=== PATIENT | male | born 1950 | race Hispanic/Latino ===

== ENCOUNTER 2017-12-03 06:54 | Day surgery (SDC) | payer MEDICARE ==
[2017-12-01 12:04] VITALS: BP 134/80
[2017-12-01 12:13] LABS: APPEARANCE,URINE Clear (CLEAR); BILIRUBIN,URINE Negative (NEGATIVE); COLOR,URINE Yellow (YELLOW); GLUCOSE, URINE (UA) Negative (NEGATIVE); KETONES,URINE Negative (NEGATIVE); LEUKOCYTE ESTERASE ,URINE Moderate (NEGATIVE); NITRATE,URINE Negative (NEGATIVE); OCCULT BLOOD,URINE Negative (NEGATIVE); PH,URINE 7.5 (5.0-8.0); PROTEIN,URINE Negative (NEGATIVE)
[2017-12-01 12:14] LABS: BASOPHILS % (AUTO) 0.5 % (0.0-5.0); EOSINOPHILS % (AUTO) 1.5 % (0.0-8.0); MEAN CORPUSCULAR HEMOGLOBIN 30.3 pg (27.0-33.0); MEAN CORPUSCULAR HGB CONC 33.2 g/dL (32.0-36.0); MEAN CORPUSCULAR VOLUME 91.3 fL (79-99); MONOCYTES % (AUTO) 10.9 % (3.0-13.0); NEUTROPHILS % (AUTO) 58.1 % (40.0-77.0); NUCLEATED RED BLOOD CELLS 0.1 % (0.0-0.19); PLATELET COUNT (AUTO) 91 K/uL (130-400); RED BLOOD CELL COUNT(AUTO) 5.26 MIL/uL (4.50-6.20); RED CELL DISTRIBUTION WIDTH 14.2 % (11.0-15.5)
[2017-12-01 12:21] LABS: CREATININE 0.9 mg/dL (0.5-1.5); POTASSIUM 3.9 mmol/L (3.5-5.1)
[2017-12-01 12:28] LABS: BACTERIA,URINE Few /HPF (None Seen); RBC,URINE None Seen /HPF (0-1)
[2017-12-03] VITALS (19 sets, daily range): BP systolic 106–162; BP diastolic 62–105
[~2017-12-03] VITALS: Ht 172.7 cm; Wt 94.7 kg
[~2017-12-03 06:54] MED LIST: AMLO5TAB7 PO; OMEP20CA10 PO
[2017-12-03] MEDS ORDERED: LACTATED RINGERS 1000ML 1,000 ML IV ONE (07:07)
[2017-12-03 07:21] LABS: BASOPHILS % (AUTO) 0.6 % (0.0-5.0); EOSINOPHILS % (AUTO) 1.6 % (0.0-8.0); HEMATOCRIT 45.9 % (42-54); LYMPHOCYTES % (AUTO) 33.6 % (21.0-51.0); MEAN CORPUSCULAR HEMOGLOBIN 30.2 pg (27.0-33.0); MEAN CORPUSCULAR HGB CONC 32.9 g/dL (32.0-36.0); MEAN CORPUSCULAR VOLUME 91.8 fL (79-99); MONOCYTES % (AUTO) 10.3 % (3.0-13.0); NEUTROPHILS % (AUTO) 53.9 % (40.0-77.0); PLATELET COUNT (AUTO) 81 K/uL (130-400); WHITE BLOOD COUNT (AUTO) 5.7 K/uL (4.8-10.8)
[2017-12-03 07:42] LABS: INR 1.07 (0.85-1.15); PARTIAL THROMBOPLASTIN TIME 28.8 SEC (26.3-35.5); PROTHROMBIN TIME 11.2 SEC (9.6-11.6)
[2017-12-03] MEDS ORDERED: DEXAMETHASONE SOD PHOSPHATE 10MG/ML 1ML VIAL ONE (08:36)
[2017-12-03] MEDS ORDERED: ONDANSETRON HCL 4 MG/2 ML VIAL ONE (08:36)
[2017-12-03] MEDS ORDERED: LIDOCAINE PF 2% 5ML ABBOJECT ONE (08:36)
[2017-12-03] MEDS ORDERED: PROPOFOL 10 MG/ML 20ML VIAL IV ONE (08:36)
[2017-12-03] MEDS ORDERED: MIDAZOLAM HCL 1 MG/ML 2ML VIAL ONE (08:36)
[2017-12-03] MEDS ORDERED: FENTANYL CITRATE PF 50 MCG/1 ML 2ML VIAL ONE (08:37)
[2017-12-03] MEDS ORDERED: BUPIVACAINE/PF 0.25% 30ML VIAL IJ ONE (09:04)
[2017-12-03] MEDS ORDERED: ROCURONIUM 10MG/1ML SYR 10 MG/ML ML ONE (09:11)
[2017-12-03] MEDS ORDERED: GLYCOPYRROLATE 1 MG/5 ML SYRINGE ONE (09:35)
[2017-12-03] MEDS ORDERED: NEOSTIGMINE 5MG/5ML SYR IV ONE (09:35)
[2017-12-03] MEDS ORDERED: RACEPINEPHRINE HCL 2.25% 0.5 ML NEB SOLN ONE (09:47)
[2017-12-03] MEDS ORDERED: KETOROLAC TROMETHAMINE 30MG/ML ONE (10:27)
[2017-12-03] MEDS ORDERED: IPRATROPIUM/ALBUTEROL SULFATE 3 ML SOLUTION IH ONE (10:48)
== END 2017-12-03 11:51 | disposition home or self-care (01) ==
LOC: DAH 06:54
PROVIDERS: ATTEND Surgery
DX: K42.9 Umbilical hernia without obstruction or gangrene (principal); I10 Essential (primary) hypertension; E66.9 Obesity, unspecified
CPT/HCPCS: 36415 ×2; 49585; 80048; 81001; 85025 ×2; 85610; 85730; 93005; 94640; A4450; A4452; A4606; C1781; J1100; J1885; J2001; J2250; J2405; J2704; J2710; J3010; J3490 ×2; J7120

== ENCOUNTER → 2022-07-07 | Outpatient (CLI) | payer OTHER, MEDICARE ==
[~2022-07-07] MED LIST changes: +ACET-66 PO; +AMLO-257 PO; -AMLO5TAB7 PO; -OMEP20CA10 PO; +OMEP20CA12 PO
== END | disposition home or self-care (01) ==
LOC: RAH 08:52
PROVIDERS: ATTEND Internal Medicine Gastroenterology
DX: K74.60 Unspecified cirrhosis of liver (principal)
CPT/HCPCS: 76700; 93975

== ENCOUNTER 2023-01-03 22:28 | Emergency (ER) | payer MEDICARE, OTHER ==
[~2023-01-03] VITALS: Ht 170.2 cm; Wt 87.5 kg
[2023-01-03 23:00] LABS: SARS-CoV-2, RNA, NAAT NEGATIVE SARS CoV-2 (NEGATIVE)
[2023-01-03 23:02] LABS: RAPID GROUP A STREP positive (NEGATIVE)
[2023-01-03 23:05] LABS: INFLUENZA TYPE A Negative For Type A (NEGATIVE); INFLUENZA TYPE B Negative For Type B (NEGATIVE)
[2023-01-03 23:17] VITALS: BP 165/60; PULSE 97; RESP 22; O2SAT 96
[2023-01-03] MEDS ORDERED: ALBUHFA IH (23:26)
[2023-01-03] MEDS ORDERED: AMOX1TAB16 PO (23:26)
[2023-01-03] MEDS ORDERED: BENZ-39 PO (23:26)
[2023-01-03] MEDS ORDERED: AMOX/CLAV 875/125MG TAB PO ONE (23:30)
== END 2023-01-03 23:36 | disposition home or self-care (01) ==
LOC: EDH 22:28
DX: J02.0 Streptococcal pharyngitis (principal); R05.9 Cough, unspecified; B97.89 Other viral agents as the cause of diseases classified elsewhere; I10 Essential (primary) hypertension; Z79.899 Other long term (current) drug therapy; Z20.822 Contact with and (suspected) exposure to COVID-19
CPT/HCPCS: 99284; 71045; 87635; 87880; 87420; 87804 ×2; C9803

== ENCOUNTER → 2024-06-09 | Outpatient (CLI) | payer OTHER ==
[~2024-06-09] MED LIST changes: +ALBUHFA IH; +AMOX1TAB16 PO; +BENZ-39 PO
== END | disposition home or self-care (01) ==
LOC: SHCH 10:33
PROVIDERS: ATTEND Internal Medicine
DX: I08.3 Combined rheumatic disorders of mitral, aortic and tricuspid valves (principal); I50.22 Chronic systolic (congestive) heart failure
CPT/HCPCS: 93306

== ENCOUNTER 2024-12-28 02:21 | Observation (INO) | payer OTHER ==
[~2024-12-28] VITALS: Ht 170.2 cm; Wt 85.3 kg
[2024-12-28 02:48] LABS: IMMATURE GRANULOCYTE ABSOLUTE 0.01 K/uL (0-1); NUCLEATED RED BLOOD CELLS 0.0 % (0.0-0.19); PLATELET COUNT (AUTO) 176 K/uL (130-400); RED BLOOD CELL COUNT(AUTO) 4.66 MIL/uL (4.50-6.20); RED CELL DISTRIBUTION WIDTH 17.6 % (11.0-15.5); WHITE BLOOD COUNT (AUTO) 4.7 K/uL (4.8-10.8)
[2024-12-28 02:59] LABS: CREATININE 1.2 mg/dL (0.5-1.3); GLOMERULAR FILTR. RATE CALC 63.0 mL/min (>90); GLUCOSE,RANDOM 150.0 mg/dL (70-105); SODIUM SERUM 136.0 mmol/L (136-145); UREA NITROGEN, BLOOD 21.0 mg/dL (7-18)
--- NOTE | 2024-12-28 03:04 | ERN ---
General Chief Complaint: Dizzy/Light Headed Stated Complaint: C/O DIZZINESS, N X V; HX OF MENIERE'S DISEASE Time Seen by MD: 02:34 History of Present Illness Initial Comments 74-year-old male with a extensive past medical history here for evaluation of generalized dizziness and vomiting/nausea for the past day. Dizziness is described as room spinning. Patient states he has had similar symptoms before in the past for which they gave him an IM injection which relieved the symptoms however he does not know the name of the med injection. He is on amlodipine, furosemide, spironolactone. States he has a history of liver cirrhosis. 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 Mccain of Cardiology Heme Onc: Dr. Carrillo Allergies: Coded Allergies: No Known Drug Allergies (Unverified Allergy, Unknown, 12/01/17) Home Meds Active Scripts Albuterol Sulfate (Ventolin Hfa/Proventil Hfa/Proair Hfa) 90 Mcg Puff, 2 PUFF IH Q4H for WHEEZING, #1 INHALER 0 Refills Prov:[facility] 01/03/23 Benzonatate (Tessalon Perles) 100 Mg Cap, 100 MG PO TID for cough, #30 CAP 0 Refills Prov:[facility] 01/03/23 Amoxicillin/Potassium Clav (Amox Tr-K Clv 875-125 mg Tab) 875 Mg-125 Mg Tablet, 1 EACH PO BID for 10 Days, #10 TAB 0 Refills Prov:[facility] 01/03/23 Acetaminophen (Tylenol) 500 Mg Tab, 500 MG PO Q4PRN, #30 TAB Prov:L[facility]Y [employer] [employer] 07/06/21 Reported Medications Amlodipine Besylate (Amlodipine Besylate) 5 Mg Tablet, 5 MG PO DAILY, TAB 12/01/17 Omeprazole (Omeprazole) 20 Mg Capsule.dr, 20 MG PO DAILY, CAP 12/01/17 Past Medical History Past Medical History: Other Medical History Other: HX OF MENIERE'S DISEASE Past Surgical History: Other Surgical History Other: HERNIA REPAIR Neuro: (+) dizziness Physical Exam General Appearance: (+) no apparent distress Orientation: (+) alert, (+) oriented x 3 Eye: bilateral eye normal inspection, bilateral eye PERRL, bilateral eye EOMI Ear, Nose, Throat: (+) hearing grossly normal, (+) normal ENT inspection, (+) moist mucous membraine Neck: (+) normal inspection Respiratory: (+) chest non-tender, (+) well ventilated Heart: (+) regular; (-) murmur Gastrointestinal: (+) soft, (+) non-tender Back: (+) normal inspection, (+) no CVA tenderness Skin: (+) normal color Results Laboratory and Microbiology Lab and Micro Result Laboratory Tests Test 12/28/24 02:40 12/28/24 03:30 White Blood Count 4.7 K/uL (4.8-10.8) L Red Blood Count 4.66 MIL/uL (4.50-6.20) Hemoglobin 13.1 g/dL (14.0-18.0) L Hematocrit 41.1 % (42-54) L Mean Corpuscular Volume 88.2 fL (79-99) Mean Corpuscular Hemoglobin 28.1 pg (27.0-33.0) Mean Corpuscular Hemoglobin Concent 31.9 g/dL (32.0-36.0) L Red Cell Distribution Width 17.6 % (11.0-15.5) H Platelet Count 176 K/uL (130-400) Mean Platelet Volume 10.8 fL (7.5-10.5) H Immature Granulocyte % (Auto) 0.2 % (0-1) Neutrophils (%) (Auto) 70.2 % (40.0-77.0) Lymphocytes (%) (Auto) 18.6 % (21.0-51.0) L Monocytes (%) (Auto) 8.8 % (3.0-13.0) Eosinophils (%) (Auto) 1.3 % (0.0-8.0) Basophils (%) (Auto) 0.9 % (0.0-5.0) Neutrophils # (Auto) 3.3 K/uL (1.8-7.7) Lymphocytes # (Auto) 0.9 K/uL (1.0-4.8) L Monocytes # (Auto) 0.4 K/uL (0.1-1.0) Eosinophils # (Auto) 0.06 K/uL (0.00-0.70) Basophils # (Auto) 0.04 K/uL (0.00-0.20) Absolute Immature Granulocyte (auto 0.01 K/uL (0-1) Nucleated Red Blood Cells 0.0 % (0.0-0.19) Sodium Level 136 mmol/L (136-145) Potassium Level 4.2 mmol/L (3.5-5.1) Chloride Level 103 mmol/L (101-111) Carbon Dioxide Level 25 mmol/L (21-32) Blood Urea Nitrogen 21 mg/dL (7-18) H Creatinine 1.2 mg/dL (0.5-1.3) Glomerular Filtration Rate Calc 63 mL/min (>90) Random Glucose 150 mg/dL (70-105) H Total Calcium 8.1 mg/dL (8.5-10.1) L Troponin I High Sensitivity 5 ng/L (4-75) Ammonia 111 umol/L (11-32) *H EKG/XRAY/US/CT/MRI EKG: (+) NSR (Prolonged QT) MDM 74-year-old male here for evaluation of dizziness and room spinning sensation. Likely BPPV exacerbation. EKG shows prolonged QT interval at 510. Because of this I am hesitant to give Zofran and/or meclizine as they prolong QT interval. It is unknown if patient has a history of CHF. However he is on multiple medications that suggest fluid overload. Thus IV fluids we will be held at this time. We will get basic lab work to check glucose level and administer steroid to see if that improves patient's symptoms. Disposition pending results of labs and clinical improvement MDM: DIFFERENTIAL DIAGNOSIS: Nausea, vomiting, Meniere's disease exacerbation, BPPV, vertigo RATIONALE: TESTS CONSIDERED AND ORDERED SECONDARY TO SHARED DECISION MAKING INCLUDE: PREVIOUS OUTSIDE RECORDS REVIEWED: OLD ER VISITS. RISK OF COMPLICATION AND/OR MORBIDITY OR MORTALITY OF PATIENT MANAGEMENT: NONE MEDICATIONS-PER MEDICATION RECONCILIATION NEED FOR HOSPITALIZATION: PATIENT DOES NOT MEET CRITERIA FOR HOSPITALIZATION. NEED FOR EMERGENCY MAJOR/MINOR SURGERY: NO THERE ARE NO SOCIAL CONCERNS WITH THIS PATIENT. PRESCRIPTION DRUG MANAGEMENT PRESCRIPTIONS WILL INCLUDE SYMPTOMATIC CARE PATIENT'S PRIOR EXTERNAL MEDICAL RECORDS FROM OTHER ER VISITS WERE REVIEWED BY ME INDICATED. PRIOR TESTING AND RESULTS FROM PREVIOUS VISITS WERE REVIEWED. PRIOR TESTS WERE TAKEN INTO ACCOUNT WITH MEDICAL DECISION MAKING AND RESOURCE UTILIZATION, INDEPENDENT HISTORIAN/HISTORIANS WERE USED TO OBTAIN COMPLETE MEDICAL HISTORY. I INDEPENDENTLY INTERPRETED THE TEST THAT WERE PERFORMED, RESULTS WERE REVIEWED BY ME AND CONSIDERED FINDINGS ON RADIOLOGY IF ORDERED. MEDICAL MANAGEMENT AND EXAMINATION INTERPRETATION DISCUSSIONS WERE HAD BY ME WITH OTHER QUALIFIED HEALTHCARE PROFESSIONALS INDICATED FOR THE PATIENT'S CARE. ED Course Orders Procedure Category Date Status Time Cbc With Differential LAB 12/28/24 Complete 02:34 Basic Metabolic Panel LAB 12/28/24 Complete 02:34 Troponin I High LAB 12/28/24 Complete Sensitivity 02:34 Chest 1vw RAD 12/28/24 Resulted 02:34 Urinalysis Profile LAB 12/28/24 Logged 02:34 12 Lead Ekg Tracing- EKG 12/28/24 Logged Technical 02:47 Ammonia LAB 12/28/24 Complete 02:47 Promethazine Hcl PHA 12/28/24 Complete (Phenergan) 03:30 Methylprednisolone PHA 12/28/24 Complete Succ 125mg (Solu-Medr 03:30 B-Type Natriuretic LAB 12/28/24 Logged Peptide 03:48 0.9% Nacl 500ml PHA 12/28/24 Complete Iv.Soln (Ns 500ml 04:00 Lactulose 20 Gm/30 Ml PHA 12/28/24 Complete Udcup (Constulose 04:00 Current Medications Medications (Trade) Dose Ordered Sig/Monique Route PRN Reason Start Time Stop Time Status Last Admin Dose Admin Lactulose (Constulose 20gm/ 30ml Udcup) 20 gm ONCE ONCE PO 12/28/24 04:00 12/28/24 04:28 DC Methylprednisolone Sodium Succinate (Solu-medROL 125MG) 80 mg ONCE ONCE IVP 12/28/24 03:30 12/28/24 03:33 DC 12/28/24 04:06 Promethazine HCl (Phenergan) 25 mg ONCE ONCE IM 12/28/24 03:30 12/28/24 03:31 DC 12/28/24 03:33 Sodium Chloride 500 ml @ 0 mls/hr Q0M IV 12/28/24 04:00 12/28/24 03:59 DC Vital Signs Date Time Temp Pulse Resp B/P (MAP) Pulse Ox O2 Delivery O2 Flow Rate FiO2 12/28/24 02:47 98.1 80 20 124/62 98 Room Air* 0 21 12/28/24 02:27 97.2 90 20 125/58 100 Room Air Lactulose greater than 100. I had a discussion with the patient regarding his liver failure. States he has never been on lactulose in the past. Because of the SC my be suffering from hepatic encephalopathy in addition to BPPV. Still maintains mild dizziness at this time. He will likely benefit from lactulose administration, and evaluation by Cardiology on the floor to see if he can tolerate meclizine. DX & DISP Disposition: Inpatient Decision to Admit Date: Dec 28, 2024 Decision to Admit Time: 04:36 Departure Impression: Primary Impression: BPPV (benign paroxysmal positional vertigo) Additional Impressions: Meniere disease, Hepatic encephalopathy, Hyperammonemia, NAFLD (nonalcoholic fatty liver disease) Condition: Stable Referrals: NELL POTTER MD (PCP) CHARLENE ZAMARRIPA MD Dec 28, 2024 03:04
[2024-12-28] MEDS: PROMETHAZINE HCL 25 MG/ML 1ML AMPULE IM ONE (03:33)
[2024-12-28] MEDS ORDERED: 0.9% NACL 500ML IV.SOLN 500 ML IV SCH (04:00)
--- NOTE | 2024-12-28 04:28 | HMCIMG ---
EXAM: CR Chest, 1 view CLINICAL HISTORY: Shortness of breath. COMPARISON: None provided. FINDINGS: Borderline cardiomegaly and perihilar vascular congestion. No acute infiltrate, effusion, or pneumothorax. No acute osseous abnormality. IMPRESSION: Borderline cardiomegaly and perihilar vascular congestion. No acute infiltrate, effusion, or pneumothorax. /[place]
[2024-12-28] MEDS ORDERED: DEXTROSE 50%-WATER 50 ML DISP.SYRIN IV PRN (05:00)
[2024-12-28] MEDS ORDERED: MAGNESIUM 2GM PREMIX 50ML 50 ML IV SCH (05:00)
[2024-12-28] MEDS ORDERED: GLUCAGON 1MG KIT 1 MG ML IM PRN (05:00)
[2024-12-28] MEDS: LACTULOSE 20 GM/30 ML UDCUP PO ONE (05:13)
[2024-12-28 06:01] LABS: ASPARTATE AMINOTRANSFERASE 40.0 U/L (10-37); TOTAL PROTEIN, SERUM 7.2 g/dL (6.0-8.3)
[2024-12-28 06:04] LABS: INR 1.47 (0.85-1.15)
[2024-12-28] MEDS ORDERED: FURO20TA4 PO (06:05)
[2024-12-28] MEDS ORDERED: SPIR50TA5 PO (06:05)
[2024-12-28] MEDS ORDERED: SACU1TAB PO (06:05)
--- NOTE | 2024-12-28 06:31 | HMCIMG ---
EXAM: CT Head Without IV contrast. CLINICAL HISTORY: vertigo TECHNIQUE: Axial computed tomography images of the head/brain without intravenous contrast. COMPARISON: None provided. FINDINGS: BRAIN: No evidence of acute hemorrhage. No mass lesion. No CT evidence for acute territorial infarct. No midline shift or extra-axial collections. Age related neuroparenchymal atrophy with chronic microangiopathic ischemic changes in the bilateral periventricular white matter. VENTRICLES: No hydrocephalus. ORBITS: The orbits are unremarkable. SINUSES AND MASTOIDS: The paranasal sinuses and mastoid air cells are clear. BONES: No fracture. SOFT TISSUES: Unremarkable. IMPRESSION: No acute intracranial abnormality. Age related neuroparenchymal atrophy with chronic microangiopathic ischemic changes in the bilateral periventricular white matter. /[place]
[2024-12-28 06:45] LABS: APPEARANCE,URINE CLOUDY (CLEAR); GLUCOSE, URINE (UA) NEGATIVE (NEGATIVE); LEUKOCYTE ESTERASE ,URINE 500 Leu/uL (NEGATIVE); NITRATE,URINE NEGATIVE (NEGATIVE); OCCULT BLOOD,URINE NEGATIVE (NEGATIVE)
[2024-12-28 06:53] LABS: ADD UA MICROSCOPIC YES
[2024-12-28 07:10] LABS: SQUAMOUS EPITHELIAL CELL,UR Rare /HPF (0-2)
--- NOTE | 2024-12-28 08:16 | HP ---
[facility] HISTORY & PHYSICAL Date Patient Seen: Dec 28, 2024 Time of Visit: 08:15 Supervising Physician:Claude Baez MD Primary Care Physician: Cristin Walker MD Outpatient Specialists: [ ] Inpatient Consults: none PROBLEM LIST: Acute decompensated liver cirrhosis (MELD score 18 points 3-4% estimated 3 month mortality) Acute hepatin encephalopathy Hyperammonemia Acute complicated cystitis Vertigo Normocytic anemia Hyperglycemia Hyperbilirubinemia Mild hypoalbuminemia HPI: This a 74-year-old male with a history of nonalcoholic fatty liver cirrhosis, Meniere's disease, and hernia repair who presented for evaluation of nausea, vomiting and dizziness for the last day. In the ED UA shows leukocyte esterase of 500 white count of 11 to 25 urine bacteria of any cloudy appearance. H&H is stable 13.1/41.1 white count slightly low 4.7 neutrophils are normal. BUN 21 creatinine of 1.2 GFR of 63 glucose of 150 mg/dL total calcium of 8.1 albumin of 3.0. Total bili of 2.0 direct bili 0.6 AST 40 and alkaline phosphatase 166. Ammonia of 111. Brain MRI shows age- appropriate diffuse cerebral volume loss with chronic small-vessel ischemic changes in bilateral frontoparietal deep and periventricular white matter. No acute infarction or intracranial hemorrhage or mass lesion. Mild ventricular prominence consistent with age-related parenchymal volume loss no hydrocephalus. Normal signal and morphology obese 0 ganglia thalami and brainstem. And cerebellum. Clear paranasal sinuses and mastoid air cells. No significant interval changes compared to prior CT of the head. Chest x-ray shows borderline cardiomegaly and perihilar vascular congestion. No acute infiltrates effusion or pneumothorax. Patient is awake alert and oriented x3. He is slow to respond and reports feeling dizzy. Patient is hemodynamically stable denies any chest pain palpitations or shortness for breath. Some abdominal distention noted but is soft nontender. Plan: Patient to be admitted to [facility] Lactulose 60 g p.o. q.4 hours Recheck ammonia in a.m. MRI ruled out acute infarct Rocephin 2 g IV Q 24 hours for complicated cystitis. Resume home medications. PAST MEDICAL HX: see above PAST SURGICAL HX: noncontributory SOCIAL HISTORY: No tobacco, ETOH, or illicit drug use Coded Allergies: No Known Drug Allergies (Unverified Allergy, Unknown, 12/01/17) REVIEW OF SYSTEMS: 12 point ROS reviewed with patient. Pertinent positives mentioned above. Otherwise negative. PHYSICAL EXAM: GENERAL: alert, weak, awake oriented x 3 HEENT: EOMI, Sclera non icteric, moist mucosa NECK: Supple, no JVD, trachea midline LUNGS: Clear breath sounds bilaterally. No wheezes HEART: Regular rate and rhythm. Normal S1 and S2, without murmurs ABD: Abdomen soft, nontender. Bowel sounds present EXT: No clubbing cyanosis or edema NEURO: Alert and oriented to person, follows commands Vital Signs (last 8hr) Date Time Temp Pulse Resp B/P (MAP) Pulse Ox O2 Delivery O2 Flow Rate FiO2 12/28/24 07:20 97.5 91 18 136/73 91 Room Air* 0 21 12/28/24 06:11 95 18 122/71 98 Room Air* 0 21 12/28/24 02:47 98.1 80 20 124/62 98 Room Air* 0 21 12/28/24 02:27 97.2 90 20 125/58 100 Room Air LABS: Hematology Labs: Test 12/28/24 02:40 Range/Units White Blood Count 4.7 L 4.8-10.8 K/uL Red Blood Count 4.66 4.50-6.20 MIL/uL Hemoglobin 13.1 L 14.0-18.0 g/dL Hematocrit 41.1 L 42-54 % Mean Corpuscular Volume 88.2 79-99 fL Mean Corpuscular Hemoglobin 28.1 27.0-33.0 pg Mean Corpuscular Hemoglobin Concent 31.9 L 32.0-36.0 g/dL Red Cell Distribution Width 17.6 H 11.0-15.5 % Platelet Count 176 130-400 K/uL Mean Platelet Volume 10.8 H 7.5-10.5 fL Immature Granulocyte % (Auto) 0.2 0-1 % Neutrophils (%) (Auto) 70.2 40.0-77.0 % Lymphocytes (%) (Auto) 18.6 L 21.0-51.0 % Monocytes (%) (Auto) 8.8 3.0-13.0 % Eosinophils (%) (Auto) 1.3 0.0-8.0 % Basophils (%) (Auto) 0.9 0.0-5.0 % Neutrophils # (Auto) 3.3 1.8-7.7 K/uL Lymphocytes # (Auto) 0.9 L 1.0-4.8 K/uL Monocytes # (Auto) 0.4 0.1-1.0 K/uL Eosinophils # (Auto) 0.06 0.00-0.70 K/uL Basophils # (Auto) 0.04 0.00-0.20 K/uL Absolute Immature Granulocyte (auto 0.01 0-1 K/uL Nucleated Red Blood Cells 0.0 0.0-0.19 % Chemistry Labs: Test 12/28/24 08:12 12/28/24 03:30 12/28/24 02:40 Range/Units Whole Blood Glucose 167 H 70-110 MG/DL Ammonia 111 *H 11-32 umol/L Sodium Level 136 136-145 mmol/L Potassium Level 4.2 3.5-5.1 mmol/L Chloride Level 103 101-111 mmol/L Carbon Dioxide Level 25 21-32 mmol/L Blood Urea Nitrogen 21 H 7-18 mg/dL Creatinine 1.2 0.5-1.3 mg/dL Glomerular Filtration Rate Calc 63 >90 mL/min Random Glucose 150 H 70-105 mg/dL Total Calcium 8.1 L 8.5-10.1 mg/dL Magnesium Level 2.10 1.80-2.40 mg/dL Total Bilirubin 2.0 H 0.2-1.0 mg/dL Direct Bilirubin 0.6 H 0.0-0.3 mg/dL Aspartate Amino Transf (AST/SGOT) 40 H 10-37 U/L Alanine Aminotransferase (ALT/SGPT) 25 12-78 U/L Alkaline Phosphatase 166 H 50-136 U/L Troponin I High Sensitivity 5 4-75 ng/L B-Type Natriuretic Peptide 57 0-100 pg/mL Total Protein 7.2 6.0-8.3 g/dL Albumin 3.0 L 3.5-5.0 g/dL Coagulation Labs: Test 12/28/24 02:40 Range/Units Prothrombin Time 15.0 H 9.6-11.6 SEC Prothromb Time International Ratio 1.47 H 0.85-1.15 Activated Partial Thromboplast Time 32.8 26.3-35.5 SEC DIAGNOSTICS / RADIOLOGY RESULTS: [ ] [facility] [address] [address] IMAGING REPORT Signed PATIENT: MARSHAL LANE MR#: [id number] : 1950 SEX: M AGE: 74 LOCATION: [facility]IP ORDER 6 STATUS: ADM IN REPORT#: [id number] SERVICE 5 REASON: DIZZINESS ORDERING PHYSICIAN: TRICIA CHONG PROCEDURE: BRAIN WO - MR BRAIN WO CON EXAM: MR Brain Without IV Contrast CLINICAL HISTORY: Dizziness. TECHNIQUE: Multiplanar, multisequence magnetic resonance imaging of the brain performed without intravenous contrast. COMPARISON: CT Head dated December 28, 2024, 05:42 EST. FINDINGS: Brain: No restricted diffusion to suggest acute infarction. No intracranial hemorrhage or mass lesion. Age-appropriate diffuse cerebral volume loss noted. Scattered T2/FLAIR hyperintensities in the bilateral fronto-parietal deep and periventricular white matter consistent with chronic microangiopathic ischemic changes (Fazekas grade II). No midline shift, extra-axial fluid collection, or sulcal effacement. Basal ganglia, thalami, brainstem, and cerebellum demonstrate normal signal. Ventricles: Mild prominence in keeping with age-related parenchymal volume loss. No hydrocephalus. Posterior Fossa and Brainstem: Normal signal and morphology. No tonsillar ectopia. Vascular Flow Voids: Central arterial and venous flow voids are preserved. Orbits: Normal appearance. Sinuses and Mastoid Air Cells: Clear. No mucosal thickening or fluid. Bones: No focal osseous lesion. Calvarium intact.IMPRESSION: 1. Age-appropriate diffuse cerebral volume loss with chronic small vessel ischemic changes (Fazekas grade II) in bilateral fronto-parietal deep and periventricular white matter. 2. No acute infarction, intracranial hemorrhage, or mass lesion. 3. Mild ventricular prominence consistent with age-related parenchymal volume loss. No hydrocephalus. 4. Normal signal and morphology of basal ganglia, thalami, brainstem, and cerebellum. 5. Clear paranasal sinuses and mastoid air cells. 6. No significant interval change compared to prior CT head (December 28, 2024). /[place] DICTATED BY: AFUA DE JESUS MD DATE: 12/28/241833 ELECTRONICALLY SIGNED BY: AFUA DE JESUS MD DATE: 12/28/241833 [facility] [address] [address] IMAGING REPORT Signed PATIENT: MARSHAL LANE MR#: [id number] : 1950 SEX: M AGE: 74 LOCATION: ED[facility]IP ORDER 5 STATUS: ADM IN REPORT#: [id number] SERVICE 6 REASON: vertigo ORDERING PHYSICIAN: ALEX SAGASTUME PROCEDURE: HEAD WO - CT HEAD/BRAIN W/O CONTRAST EXAM: CT Head Without IV contrast. CLINICAL HISTORY: vertigo TECHNIQUE: Axial computed tomography images of the head/brain without intravenous contrast. COMPARISON: None provided. FINDINGS: BRAIN: No evidence of acute hemorrhage. No mass lesion. No CT evidence for acute territorial infarct. No midline shift or extra-axial collections. Age related neuroparenchymal atrophy with chronic microangiopathic ischemic changes in the bilateral periventricular white matter. VENTRICLES: No hydrocephalus. ORBITS: The orbits are unremarkable. SINUSES AND MASTOIDS: The paranasal sinuses and mastoid air cells are clear. BONES: No fracture. SOFT TISSUES: Unremarkable. IMPRESSION: No acute intracranial abnormality. Age related neuroparenchymal atrophy with chronic microangiopathic ischemic changes in the bilateral periventricular white matter. /[place] DICTATED BY: ISI GERBER Jr., MD DATE: 12/28/24729 ELECTRONICALLY SIGNED BY: ISI GERBER Jr., MD DATE: 12/28/24729 [facility] [address] [address] IMAGING REPORT Signed PATIENT: MARSHAL LANE MR#: [id number] : 1950 SEX: M AGE: 74 LOCATION: EDH ORDER 4 STATUS: REG ER REPORT#: [id number] SERVICE 3 REASON: sob ORDERING PHYSICIAN: CHARLENE ZAMARRIPA MD PROCEDURE: CXR1VW - CHEST 1VW EXAM: CR Chest, 1 view CLINICAL HISTORY: Shortness of breath. COMPARISON: None provided. FINDINGS: Borderline cardiomegaly and perihilar vascular congestion. No acute infiltrate, effusion, or pneumothorax. No acute osseous abnormality. IMPRESSION: Borderline cardiomegaly and perihilar vascular congestion. No acute infiltrate, effusion, or pneumothorax. /[place] DICTATED BY: ISI GERBER Jr., MD DATE: 12/28/24525 ELECTRONICALLY SIGNED BY: ISI GERBER Jr., MD DATE: 12/28/24525 PLAN NEURO: Minimize central acting medications as possible. Maintain fall precautions, adequate lighting during the day PULMONARY: Supplemental 02 as needed. Maintain aspiration precautions at all times CARDIOVASCULAR: Follow hemodynamics. Vital signs per facility protocol GI & NUTRITION: Continue with nutritional support. Continue stool softeners and laxatives as needed. KIDNEYS & ELECTROLYTES: Strict monitoring of intake, output and overall fluid balance. Avoid nephrotoxic medications to the extent possible. Medications to be dosed according to renal function. Monitor electrolytes and replace as needed ENDOCRINE: Maintain blood glucose between 100-180 at all times. Hypoglycemia protocol in place INFECTIOUS DISEASE: Trend temperature, WBC and procalcitonin level Follow cultures, deescalate antibiotics as soon as possible. Panculture if new onset fever ONCOLOGY/HEMATOLOGY/COAGULATION: Monitor for s/s of bleeding Monitor hemoglobin, coagulation studies as needed SKIN: Pressure ulcer prevention per facility protocol Specialty mattress ORTHO/REHAB: Continue PT/OT Prophylaxis: Continue GI and DVT prophylaxis Code Status: Full Resuscitation Disposition: TBD Other: Total patient care time exceeds 35 minutes excluding all procedures. ATTESTATION BY PHYSICIAN I reviewed the documentation, medical decision making, and treatment plan as noted by the mid-level provider above. I agree with the findings and plan of care. Claude Baez MD, [facility] Dec 28, 2024 08:16
[2024-12-28] MEDS ORDERED: LACTULOSE 20 GM/30 ML UDCUP PO PRN (08:30)
[2024-12-28] MEDS: LACTULOSE 20 GM/30 ML UDCUP PO SCH (08:58)
[2024-12-28] MEDS: SACUBITRIL/VALSARTAN 1 EACH TABLET PO SCH (08:59)
[2024-12-28] MEDS: SPIRONOLACTONE 25 MG TAB PO SCH (08:59)
--- NOTE | 2024-12-28 11:28 | NUR ---
DCP:HOME Pt currently lives at home with his [place] [id number] and son. Pt does not have any DME, home health, or provider services. Pt states that he can complete ADLs independently. PCP is Dr. Cristin Walker and uses [facility] for any RX needs. At DC pt will want to go home and family can assist with transportation.
--- NOTE | 2024-12-28 12:33 | EKG ---
[facility] Test Date: 2024-12-28 Test Time: 02:45:39 Pat Name: MARSHAL LANE Department: EDHIP Room: ED 14 Gender: M Room Clerk: AILIN : 1950 Requested By: CHARLENE ZAMARRIPA Order Number: [id number] Reading MD: Bita Mccain Measurements Intervals [place] Rate: 81 P: 55 AL: 146 QRS: 24 QRSD: 101 T: 25 QT: 440 QTc: 510 Interpretive Statements Sinus rhythm Prolonged QT interval Compared to ECG 12/01/2017 11:59:37 Prolonged QT interval now present Electronically Signed On 12-28-2024 17:17:36 SWING TYPE LATHE OPERATOR by Bita Mccain Please click the below link to view image of tracing.
[2024-12-28] MEDS ORDERED: LACTULOSE 20 GM/30 ML UDCUP PO SCH (16:00)
--- NOTE | 2024-12-28 17:35 | HMCIMG ---
EXAM: MR Brain Without IV Contrast CLINICAL HISTORY: Dizziness. TECHNIQUE: Multiplanar, multisequence magnetic resonance imaging of the brain performed without intravenous contrast. COMPARISON: CT Head dated December 28, 2024, 05:42 EST. FINDINGS: Brain: No restricted diffusion to suggest acute infarction. No intracranial hemorrhage or mass lesion. Age-appropriate diffuse cerebral volume loss noted. Scattered T2/FLAIR hyperintensities in the bilateral fronto-parietal deep and periventricular white matter consistent with chronic microangiopathic ischemic changes (Fazekas grade II). No midline shift, extra-axial fluid collection, or sulcal effacement. Basal ganglia, thalami, brainstem, and cerebellum demonstrate normal signal. Ventricles: Mild prominence in keeping with age-related parenchymal volume loss. No hydrocephalus. Posterior Fossa and Brainstem: Normal signal and morphology. No tonsillar ectopia. Vascular Flow Voids: Central arterial and venous flow voids are preserved. Orbits: Normal appearance. Sinuses and Mastoid Air Cells: Clear. No mucosal thickening or fluid. Bones: No focal osseous lesion. Calvarium intact.IMPRESSION: 1. Age-appropriate diffuse cerebral volume loss with chronic small vessel ischemic changes (Fazekas grade II) in bilateral fronto-parietal deep and periventricular white matter. 2. No acute infarction, intracranial hemorrhage, or mass lesion. 3. Mild ventricular prominence consistent with age-related parenchymal volume loss. No hydrocephalus. 4. Normal signal and morphology of basal ganglia, thalami, brainstem, and cerebellum. 5. Clear paranasal sinuses and mastoid air cells. 6. No significant interval change compared to prior CT head (December 28, 2024). /[place]
[2024-12-29] VITALS (8 sets, daily range): BP systolic 100–131; BP diastolic 46–67; PULSE 64–79; RESP 16–20; TEMP 97.3–98.4; O2SAT 97–98
--- NOTE | 2024-12-29 01:35 | NUR ---
REPORT GIVEN TO BEKAH SHANKS
[2024-12-29 05:19] LABS: IMMATURE GRANULOCYTE ABSOLUTE 0.01 K/uL (0-1); NUCLEATED RED BLOOD CELLS 0.0 % (0.0-0.19); PLATELET COUNT (AUTO) 142 K/uL (130-400); RED BLOOD CELL COUNT(AUTO) 4.31 MIL/uL (4.50-6.20); RED CELL DISTRIBUTION WIDTH 17.5 % (11.0-15.5); WHITE BLOOD COUNT (AUTO) 4.7 K/uL (4.8-10.8)
[2024-12-29 05:32] LABS: CREATININE 0.7 mg/dL (0.5-1.3); GLOMERULAR FILTR. RATE CALC 97.0 mL/min (>90); GLUCOSE,RANDOM 106.0 mg/dL (70-105); PHOSPHORUS 3.5 mg/dL (2.5-4.9); SODIUM SERUM 139.0 mmol/L (136-145); UREA NITROGEN, BLOOD 16.0 mg/dL (7-18)
--- NOTE | 2024-12-29 17:08 | PN ---
[facility] PROGRESS NOTE Date Patient Seen: Dec 29, 2024 Time of Visit: 17:08 Supervising Physician: Dr. Francisco Javier Ritchie Primary Care Physician: Cristin Walker MD Outpatient Specialists: [ ] Inpatient Consults: none PROBLEM LIST: Acute decompensated liver cirrhosis (MELD score 18 points 3-4% estimated 3 month mortality) Acute hepatic encephalopathy Hyperammonemia Acute complicated cystitis Vertigo Normocytic anemia Hyperglycemia Hyperbilirubinemia Mild hypoalbuminemia PLAN: Telemetry. Antibiotic: Ceftriaxone 2 g IV Q 24 hours Acute decompensated liver cirrhosis meld score 18, anticoagulation therapy contraindicated SCDs for DVT prophylaxis GI prophylaxis with Protonix 40 mg p.o. daily Spironolactone 50 mg p.o. daily Lasix 20 mg p.o. daily Entresto 24/26 mg p.o. daily Further orders per course of stay A.m. labs INTERVAL HISTORY: [ ] REVIEW OF SYSTEMS: 12 point ROS reviewed with patient. Pertinent positives mentioned above. Otherwise negative. PHYSICAL EXAM: GENERAL: alert, weak, awake oriented x 3 HEENT: EOMI, Sclera non icteric, moist mucosa NECK: Supple, no JVD, trachea midline LUNGS: Clear breath sounds bilaterally. No wheezes HEART: Regular rate and rhythm. Normal S1 and S2, without murmurs ABD: Abdomen soft, nontender. Bowel sounds present EXT: No clubbing cyanosis or edema NEURO: Alert and oriented to person, follows commands Vital Signs (last 8hr) Date Time Temp Pulse Resp B/P (MAP) Pulse Ox O2 Delivery O2 Flow Rate FiO2 12/29/24 16:51 97.9 64 18 100/46 99 Room Air 12/29/24 13:34 97.9 68 16 121/62 97 Room Air 12/29/24 09:46 97.9 64 18 104/61 97 Room Air LABS: Hematology Labs: Test 12/29/24 05:07 Range/Units White Blood Count 4.7 L 4.8-10.8 K/uL Red Blood Count 4.31 L 4.50-6.20 MIL/uL Hemoglobin 12.3 L 14.0-18.0 g/dL Hematocrit 38.4 L 42-54 % Mean Corpuscular Volume 89.1 79-99 fL Mean Corpuscular Hemoglobin 28.5 27.0-33.0 pg Mean Corpuscular Hemoglobin Concent 32.0 32.0-36.0 g/dL Red Cell Distribution Width 17.5 H 11.0-15.5 % Platelet Count 142 130-400 K/uL Mean Platelet Volume 11.0 H 7.5-10.5 fL Immature Granulocyte % (Auto) 0.2 0-1 % Neutrophils (%) (Auto) 72.6 40.0-77.0 % Lymphocytes (%) (Auto) 15.0 L 21.0-51.0 % Monocytes (%) (Auto) 10.7 3.0-13.0 % Eosinophils (%) (Auto) 1.1 0.0-8.0 % Basophils (%) (Auto) 0.4 0.0-5.0 % Neutrophils # (Auto) 3.4 1.8-7.7 K/uL Lymphocytes # (Auto) 0.7 L 1.0-4.8 K/uL Monocytes # (Auto) 0.5 0.1-1.0 K/uL Eosinophils # (Auto) 0.05 0.00-0.70 K/uL Basophils # (Auto) 0.02 0.00-0.20 K/uL Absolute Immature Granulocyte (auto 0.01 0-1 K/uL Nucleated Red Blood Cells 0.0 0.0-0.19 % Chemistry Labs: Test 12/29/24 15:32 12/29/24 05:07 12/28/24 18:02 12/28/24 02:40 Range/Units Whole Blood Glucose 94 70-110 MG/DL Sodium Level 139 136-145 mmol/L Potassium Level 3.8 3.5-5.1 mmol/L Chloride Level 104 101-111 mmol/L Carbon Dioxide Level 25 21-32 mmol/L Blood Urea Nitrogen 16 7-18 mg/dL Creatinine 0.7 0.5-1.3 mg/dL Glomerular Filtration Rate Calc 97 >90 mL/min Random Glucose 106 H 70-105 mg/dL Total Calcium 7.9 L 8.5-10.1 mg/dL Phosphorus Level 3.5 2.5-4.9 mg/dL Magnesium Level 2.10 1.80-2.40 mg/dL Ammonia 51 H 11-32 umol/L Bedside Glucose Comment Notified Nurse Total Bilirubin 2.0 H 0.2-1.0 mg/dL Direct Bilirubin 0.6 H 0.0-0.3 mg/dL Aspartate Amino Transf (AST/SGOT) 40 H 10-37 U/L Alanine Aminotransferase (ALT/SGPT) 25 12-78 U/L Alkaline Phosphatase 166 H 50-136 U/L Troponin I High Sensitivity 5 4-75 ng/L B-Type Natriuretic Peptide 57 0-100 pg/mL Total Protein 7.2 6.0-8.3 g/dL Albumin 3.0 L 3.5-5.0 g/dL Coagulation Labs: Test 12/28/24 02:40 Range/Units Prothrombin Time 15.0 H 9.6-11.6 SEC Prothromb Time International Ratio 1.47 H 0.85-1.15 Activated Partial Thromboplast Time 32.8 26.3-35.5 SEC DIAGNOSTICS / RADIOLOGY RESULTS: [ ] PLAN NEURO: Minimize central acting medications as possible. Maintain fall precautions, adequate lighting during the day PULMONARY: Supplemental 02 as needed. Maintain aspiration precautions at all times CARDIOVASCULAR: Follow hemodynamics. Vital signs per facility protocol GI & NUTRITION: Continue with nutritional support. Continue stool softeners and laxatives as needed. KIDNEYS & ELECTROLYTES: Strict monitoring of intake, output and overall fluid balance. Avoid nephrotoxic medications to the extent possible. Medications to be dosed according to renal function. Monitor electrolytes and replace as needed ENDOCRINE: Maintain blood glucose between 100-180 at all times. Hypoglycemia protocol in place INFECTIOUS DISEASE: Trend temperature, WBC and procalcitonin level Follow cultures, deescalate antibiotics as soon as possible. Panculture if new onset fever ONCOLOGY/HEMATOLOGY/COAGULATION: Monitor for s/s of bleeding Monitor hemoglobin, coagulation studies as needed SKIN: Pressure ulcer prevention per facility protocol Specialty mattress ORTHO/REHAB: Continue PT/OT Prophylaxis: Continue GI and DVT prophylaxis Code Status: Full Resuscitation Disposition: TBD Other: Total patient care time exceeds 35 minutes excluding all procedures. GERONIMO CORNELIUS AGACNP Dec 29, 2024 17:08
[2024-12-30 00:20] VITALS: BP 106/38; PULSE 65; RESP 18; TEMP 97.8
[2024-12-30 03:59] VITALS: BP 92/43
[2024-12-30 04:27] VITALS: BP 112/58; PULSE 61
[2024-12-30 04:37] VITALS: BP 112/58; PULSE 61; RESP 18; TEMP 98.5
[2024-12-30 06:45] LABS: NUCLEATED RED BLOOD CELLS 0.0 % (0.0-0.19); PLATELET COUNT (AUTO) 134.0 K/uL (130-400); RED BLOOD CELL COUNT(AUTO) 4.49 MIL/uL (4.50-6.20); RED CELL DISTRIBUTION WIDTH 17.4 % (11.0-15.5); WHITE BLOOD COUNT (AUTO) 4.0 K/uL (4.8-10.8)
[2024-12-30 08:00] VITALS: BP 103/60; PULSE 67; RESP 16; TEMP 97.2
[2024-12-30 08:05] LABS: ASPARTATE AMINOTRANSFERASE 39.0 U/L (10-37); CREATININE 0.8 mg/dL (0.5-1.3); GLOMERULAR FILTR. RATE CALC 93.0 mL/min (>90); GLUCOSE,RANDOM 103.0 mg/dL (70-105); SODIUM SERUM 140.0 mmol/L (136-145); TOTAL PROTEIN, SERUM 6.5 g/dL (6.0-8.3); UREA NITROGEN, BLOOD 22.0 mg/dL (7-18)
[2024-12-30 12:00] VITALS: BP 115/69; PULSE 96; RESP 16; TEMP 97.9
--- NOTE | 2024-12-30 15:06 | DS ---
[facility] DISCHARGE SUMMARY Date Patient Seen: Dec 30, 2024 Time of Visit: 15:06 Supervising Physician: Dr. Francisco Javier Ritchie Primary Care Physician: Cristin Walker MD Outpatient Specialists: [ ] Inpatient Consults: none PROBLEM LIST: Acute decompensated liver cirrhosis (MELD score 18 points 3-4% estimated 3 month mortality) Acute hepatic encephalopathy, Resolved Hyperammonemia Acute complicated cystitis, urine cultue (+) Klebsiella oxytoca Vertigo Normocytic anemia Hyperglycemia Hyperbilirubinemia Mild hypoalbuminemia PLAN: Telemetry. Antibiotic: Ceftriaxone 2 g IV Q 24 hours Acute decompensated liver cirrhosis meld score 18, anticoagulation therapy contraindicated SCDs for DVT prophylaxis GI prophylaxis with Protonix 40 mg p.o. daily Spironolactone 50 mg p.o. daily Lasix 20 mg p.o. daily Entresto 24/26 mg p.o. daily Further orders per course of stay A.m. labs HOSPITAL COURSE: Patient was admitted clinically worked up diagnosed with a acute complicated cystitis urine culture came back (+) Klebsiella oxytoca and the patient will be transitioned to cefdinir 300 mg p.o. b.i.d. for seven days after receiving three days of IV therapy while being hospitalized. Hepatic encephalopathy secondary to alcoholic liver cirrhosis meld score of 18. Education provided on the disease process and available resources provided by social and human services assistant in the community that can address and assist patient with managing this disease process. During the admission the hepatic encephalopathy has resolved patient is back to baseline. Patient received education following up with primary care provider Dr. Cristin Walker 2-3 days after being discharged from the hospital for a wellness check. Patient agrees with the discharge plan prescription provided to the patient patient is medically stable has no questions concerns at this time can be discharged to home with family care. HPI (per admitting provider) This a 74-year-old male with a history of nonalcoholic fatty liver cirrhosis, Meniere's disease, and hernia repair who presented for evaluation of nausea, vomiting and dizziness for the last day. In the ED UA shows leukocyte esterase of 500 white count of 11 to 25 urine bacteria of any cloudy appearance. H&H is stable 13.1/41.1 white count slightly low 4.7 neutrophils are normal. BUN 21 creatinine of 1.2 GFR of 63 glucose of 150 mg/dL total calcium of 8.1 albumin of 3.0. Total bili of 2.0 direct bili 0.6 AST 40 and alkaline phosphatase 166. Ammonia of 111. Brain MRI shows age- appropriate diffuse cerebral volume loss with chronic small-vessel ischemic changes in bilateral frontoparietal deep and periventricular white matter. No acute infarction or intracranial hemorrhage or mass lesion. Mild ventricular prominence consistent with age-related parenchymal volume loss no hydrocephalus. Normal signal and morphology obese 0 ganglia thalami and brainstem. And cerebellum. Clear paranasal sinuses and mastoid air cells. No significant interval changes compared to prior CT of the head. Chest x-ray shows borderline cardiomegaly and perihilar vascular congestion. No acute infiltrates effusion or pneumothorax. Patient is awake alert and oriented x3. He is slow to respond and reports feeling dizzy. Patient is hemodynamically stable denies any chest pain palpitations or shortness for breath. Some abdominal distention noted but is soft nontender. The patient was treated for the following problems: ACTIVE PROBLEM LIST FOR THE HOSPITALIZATION: Acute decompensated liver cirrhosis (MELD score 18 points 3-4% estimated 3 month mortality) Acute hepatic encephalopathy, Resolved Hyperammonemia Acute complicated cystitis, urine cultue (+) Klebsiella oxytoca CHRONIC PROBLEMS: continue previous management per PCP unless otherwise indicated Vertigo Normocytic anemia Hyperglycemia Hyperbilirubinemia Mild hypoalbuminemia CHAIR MAKER FINDINGS/RECOMMENDATIONS: [ ] PROCEDURES: as mentioned above DISCHARGE MEDICATIONS: Cefdinir 300 mg p.o. b.i.d. seven days, antibiotic therapy of 10 days. Pt hemodynamically stable and afebrile at time of discharge. PCP notified of patients admission, hospital course and discharge. PHYSICAL EXAM: GENERAL: alert, weak, awake oriented x 3 HEENT: EOMI, Sclera non icteric, moist mucosa NECK: Supple, no JVD, trachea midline LUNGS: Clear breath sounds bilaterally. No wheezes HEART: Regular rate and rhythm. Normal S1 and S2, without murmurs ABD: Abdomen soft, nontender. Bowel sounds present EXT: No clubbing cyanosis or edema NEURO: Alert and oriented to person, follows commands FOLLOW-UP: Dr. Cristin Walker Follow-up with PCP in 2-3 days RECOMMENDATIONS: See Discharge Instructions This case was seen and discussed with my supervising physician. More than 51 minutes spent on discharge process, including evaluation of the patient, discussion with nursing staff, medication reconciliation and follow-up appointments GERONIMO CORNELIUS [facility] Dec 30, 2024 15:06
--- NOTE | 2024-12-30 16:20 | NUR ---
DC: PT DC'D HOME PER MD ORDER, RX PROVIDED TO PT. PT WAS INSTRUCTED TO F/U WITH PCP IN 3- 7 DAYS. PT STATED UNDERSTANDING, AND SON AT BEDSIDE. IV REMOVED TIP INTACT. PT DENIES ANY PAIN OR DISCOMFORT. PT COLLECTED ALL OF PT BELONGINGS. PT WHEELED DOWN TO FRONT LOBBY.
== END 2024-12-30 16:20 | disposition home or self-care (01) ==
LOC: EDH 02:22 → EDHIP 04:37 → 3CH 12-29 01:39
PROVIDERS: ADMIT Internal Medicine Critical Care Medicine; ATTEND Internal Medicine Critical Care Medicine
DX: K76.0 Fatty (change of) liver, not elsewhere classified (principal); E88.09 Other disorders of plasma-protein metabolism, not elsewhere classified; D64.9 Anemia, unspecified; N30.00 Acute cystitis without hematuria; E72.20 Disorder of urea cycle metabolism, unspecified; R73.9 Hyperglycemia, unspecified; Z79.899 Other long term (current) drug therapy
CPT/HCPCS: 96372; 96365; 96375; 99285; 80076; 83735 ×2; 84484; 80048 ×2; 83880; 82140 ×2; 85025 ×2; 85610; 85730; 87086 ×2; 87186; 82948 ×10; 81001; 36415 ×3; 71045; 70450; 70551; 93005; 96366; 84100; 80053; 85027; G0378 ×60; J2919; J2550; J0696 ×2

== ENCOUNTER 2025-01-09 11:11 | Emergency (ER) | payer OTHER ==
[~2025-01-09] VITALS: Ht 170.2 cm; Wt 81.6 kg
[~2025-01-09 11:11] MED LIST changes: -ACET-66 PO; -ALBUHFA IH; -AMOX1TAB16 PO; +FURO20TA4 PO; +SACU1TAB PO; +SPIR50TA5 PO
[2025-01-09 11:12] VITALS: TEMP 98
--- NOTE | 2025-01-09 11:19 | ERN ---
ED Note History of Present Illness Stated Complaint: WEAK, DIZZY Chief Complaint: Weakness Time Seen by MD: 11:13 Dictation: Patient is a 74-year-old male coming in today with complaints of dizziness and weakness onset four days prior to arrival. No fever no chills no headache. He was just discharged from the hospital recently for benign positional vertigo and hyperammonemia. He thinks his Allergies: Coded Allergies: No Known Drug Allergies (Unverified Allergy, Unknown, 12/01/17) Home Meds Active Scripts Benzonatate (Tessalon Perles) 100 Mg Cap, 100 MG PO TID for cough, #30 CAP 0 Refills Prov:COMFORT HOANG Diane [employer]N 01/03/23 Reported Medications Sacubitril/Valsartan (Entresto 24 mg-26 mg Tablet) 24 Mg-26 Mg Tablet, 1 TAB PO DAILY for 30 Days, #60 TAB 0 Refills 12/28/24 Spironolactone (Spironolactone) 50 Mg Tablet, 1 TAB PO DAILY for 30 Days, #30 TAB 0 Refills 12/28/24 Furosemide (Furosemide) 20 Mg Tablet, 1 TAB PO DAILY for 30 Days, #30 TAB 0 Refills 12/28/24 Amlodipine Besylate (Amlodipine Besylate) 5 Mg Tablet, 5 MG PO DAILY, TAB 12/01/17 Omeprazole (Omeprazole) 20 Mg Capsule.dr, 20 MG PO DAILY, CAP 12/01/17 Past Medical History Past Medical History: Liver Disease, Other Additional Past Medical Hx: HX OF MENIERE'S DISEASE Surgical History: Other Surgical History Other: HERNIA REPAIR RN Note Reviewed/Agreed w/PFSH: Yes Review of System Dictation S CONSTITUTIONAL: NEGATIVE EXCEPT GB W HEAD/FACE: NEGATIVE EXCEPT FOR HPI EENT: NEGATIVE EXCEPT FOR HPI RESPIRATORY: NEGATIVE EXCEPT FOR HPI GASTROINTESTINAL/ABDOMINAL: NEGATIVE EXCEPT FOR HPI GENITOURINARY: NEGATIVE EXCEPT FOR HPI MUSCULOSKELETAL: NEGATIVE EXCEPT FOR HPI INTEGUMENTARY: NEGATIVE EXCEPT FOR HPI NEUROLOGICAL/PSYCH: NEGATIVE EXCEPT FOR HPI DIZZY HEMATOLOGIC/LYMPHATIC: NEGATIVE EXCEPT FOR HPI ALL SYSTEMS NEGATIVE, EXCEPT NOTED ABOVE. 13 POINT REVIEW OF SYSTEMS ASSESSED AND ALL NEGATIVE EXCEPT FOR ABOVE. Initial Vital Sign VS Vital Signs Date Time Temp Pulse Resp B/P (MAP) Pulse Ox O2 Delivery O2 Flow Rate FiO2 01/09/25 11:12 98.1 69 16 125/54 100 0 01/09/25 14:36 Room Air* 21 Physical Exam Dictation VITAL SIGNS REVIEWED GENERAL APPEARANCE: ALERT, ORIENTED X 3, NO ACUTE DISTRESS, WELL DEVELOPED, NOURISHED. HEAD AND FACE: NON-TRAUMATIC. EYES: PERRL, PINK CONJUNCTIVAS, EYELID NO TRAUMA, ANTERIOR CHAMBER WITH ARCUS SENILIS. NO NYSTAGMUS EARS: PINNAS INTACT AND NO SIGNS OF TRAUMA OR ERYTHEMA EAR CANALS CLEAR AND NO DISCHARGE TM NO ERYTHEMA NOSE: NO DISCHARGE, NO BLEEDING. OROPHARYNX: MOUTH NORMAL, TONGUE PINK, PHARYNX CLEAR,NO ERYTHEMA, TONSILS NO EXUDATES, NO ABSCESSES NOTED, MUCOUS MEMBRANE MOIST NECK: SUPPLE, NON-TENDER, NO THYROMEGALY, NO MASSES, NO JVD, NO BRUITS BREAST:DEFERRED CHEST:NO TENDERNESS, NO CREPITUS, NO PARADOXICAL MOVEMENT, NO RETRACTIONS LUNGS:CLEAR, WELL-VENTILATED, SYMMETRIC, NO RALES, NO WHEEZING, NO RHONCHI, NO STRIDOR, GOOD BREATH SOUNDS BILATERALLY HEART: REGULAR RATE, REGULAR RHYTHM, NO MURMUR, NO GALLOPS VASCULAR: NO PERIPHERAL EDEMA, ABDOMEN: SOFT, POSITIVE BOWEL SOUNDS, NONDISTENDED, NO GUARDING, NONTENDER, NO REBOUND, NO MASSES NO HEPATOMEGALY, NO SPLENOMEGALY, NO MAY'S SIGN, NO HERNIAS. RECTAL: DEFERRED GENITAL: DEFERRED NEUROLOGICAL: NORMAL SPEECH, MOTOR FUNCTION INTACT, SENSORY FUNCTION INTACT NIH IS 0 MUSCULOSKELETAL: NECK NONTENDER, FULL RANGE OF MOTION, BACK NONTENDER, FULL RANGE OF MOTION, EXTREMITIES: NONTENDER, FULL RANGE OF MOTION SKIN: COLOR PINK, DRY, NO TURGOR, NO RASH, NO LACERATIONS, NO ABRASIONS, NO CONTUSIONS. LYMPHATIC: DEFERRED Results (Laboratory/Radiology) Laboratory/Radiology Laboratory Tests Test 01/09/25 11:26 01/09/25 14:26 White Blood Count 3.9 K/uL (4.8-10.8) L Red Blood Count 4.71 MIL/uL (4.50-6.20) Hemoglobin 13.4 g/dL (14.0-18.0) L Hematocrit 41.9 % (42-54) L Mean Corpuscular Volume 89.0 fL (79-99) Mean Corpuscular Hemoglobin 28.5 pg (27.0-33.0) Mean Corpuscular Hemoglobin Concent 32.0 g/dL (32.0-36.0) Red Cell Distribution Width 17.3 % (11.0-15.5) H Platelet Count 128 K/uL (130-400) L Mean Platelet Volume 11.3 fL (7.5-10.5) H Immature Granulocyte % (Auto) 0.3 % (0-1) Neutrophils (%) (Auto) 72.2 % (40.0-77.0) Lymphocytes (%) (Auto) 16.2 % (21.0-51.0) L Monocytes (%) (Auto) 9.0 % (3.0-13.0) Eosinophils (%) (Auto) 1.5 % (0.0-8.0) Basophils (%) (Auto) 0.8 % (0.0-5.0) Neutrophils # (Auto) 2.8 K/uL (1.8-7.7) Lymphocytes # (Auto) 0.6 K/uL (1.0-4.8) L Monocytes # (Auto) 0.4 K/uL (0.1-1.0) Eosinophils # (Auto) 0.06 K/uL (0.00-0.70) Basophils # (Auto) 0.03 K/uL (0.00-0.20) Absolute Immature Granulocyte (auto 0.01 K/uL (0-1) Nucleated Red Blood Cells 0.0 % (0.0-0.19) Sodium Level 136 mmol/L (136-145) Potassium Level 4.1 mmol/L (3.5-5.1) Chloride Level 103 mmol/L (101-111) Carbon Dioxide Level 23 mmol/L (21-32) Blood Urea Nitrogen 17 mg/dL (7-18) Creatinine 0.8 mg/dL (0.5-1.3) Glomerular Filtration Rate Calc 93 mL/min (>90) Random Glucose 123 mg/dL (70-105) H Total Calcium 8.3 mg/dL (8.5-10.1) L Magnesium Level 2.00 mg/dL (1.80-2.40) Total Bilirubin 2.2 mg/dL (0.2-1.0) H Aspartate Amino Transf (AST/SGOT) 36 U/L (10-37) Alanine Aminotransferase (ALT/SGPT) 31 U/L (12-78) Alkaline Phosphatase 139 U/L (50-136) H Ammonia 61 umol/L (11-32) H Troponin I High Sensitivity 7 ng/L (4-75) Total Protein 7.0 g/dL (6.0-8.3) Albumin 3.1 g/dL (3.5-5.0) L Urine Color LIGHT-YELLOW (YELLOW) Urine Appearance CLEAR (CLEAR) Urine pH 7.5 (5.0-8.0) Urine Specific [place] 1.013 (1.001-1.031) Urine Protein NEGATIVE mg/dL (NEGATIVE) Urine Glucose (UA) NEGATIVE mg/dL (NEGATIVE) Urine Ketones NEGATIVE mg/dL (NEGATIVE) Urine Occult Blood NEGATIVE (NEGATIVE) Urine Nitrate NEGATIVE (NEGATIVE) Urine Bilirubin NEGATIVE mg/dL (NEGATIVE) Urine Urobilinogen 0.2 mg/dL (0.2-1.0) Urine Leukocyte Esterase NEGATIVE Lilia/uL Labs Reviewed?: Yes EKG Comment: Sinus rhythm/heart rate 73/axis normal/QT interval 537 millisecond ED Course ED Course Orders Procedure Category Date Status Time Ammonia LAB 01/09/25 Complete 11:14 Cbc With Differential LAB 01/09/25 Complete 11:14 12 Lead Ekg Tracing- EKG 01/09/25 Complete Technical 11:14 Magnesium LAB 01/09/25 Complete 11:14 Troponin I High LAB 01/09/25 Complete Sensitivity 11:14 Comprehensive LAB 01/09/25 Complete Metabolic Panel 11:14 Urinalysis Profile LAB 01/09/25 Complete 11:51 Vital Signs Date Time Temp Pulse Resp B/P (MAP) Pulse Ox O2 Delivery O2 Flow Rate FiO2 01/09/25 14:36 84 18 113/53 99 Room Air* 0 21 01/09/25 11:12 98.1 69 16 125/54 100 0 1502/PATIENT REMAINS HEMODYNAMICALLY STABLE. AMMONIA LEVEL IS 61 DOES NOT NEED ANY EMERGENT TREATMENT. PATIENT DISCHARGED HOME WITH DIAGNOSIS OF DIZZINESS VERTIGO WE WILL BE PRESCRIBED MECLIZINE AND TOLD TO SEE HIS PRIMARY CARE DOCTOR. HEART Score Response (Comments) Value EKG: Repolarization changes 1 Age: > 65yrs (+2) 2 Risk Factors: 1-2 risk factors (+1) 1 Initial Troponin: Normal limit (0) 0 Total 4 Medical Decision Making MDM MDM: DIFFERENTIAL DIAGNOSIS: ACS/AMI/ARRHYTHMIA/ELECTROLYTE IMBAL ANCE/DEHYDRATION/HYPERAMMONEMIA/UTI RATIONALE: TESTS CONSIDERED AND ORDERED SECONDARY TO SHARED DECISION MAKING INCLUDE: EKG/LABS PREVIOUS OUTSIDE RECORDS REVIEWED: OLD ER VISITS. RISK OF COMPLICATION AND/OR MORBIDITY OR MORTALITY OF PATIENT MANAGEMENT: NONE MEDICATIONS-PER MEDICATION RECONCILIATION NEED FOR HOSPITALIZATION: PATIENT DOES NOT MEET CRITERIA FOR HOSPITALIZATION. NONE NEED FOR EMERGENCY MAJOR/MINOR SURGERY: NO THERE ARE NO SOCIAL CONCERNS WITH THIS PATIENT. PRESCRIPTION DRUG MANAGEMENT MECLIZINE PRESCRIPTIONS WILL INCLUDE SYMPTOMATIC CARE PATIENT'S PRIOR EXTERNAL MEDICAL RECORDS FROM OTHER ER VISITS WERE REVIEWED BY ME INDICATED. PRIOR TESTING AND RESULTS FROM PREVIOUS VISITS WERE REVIEWED. PRIOR TESTS WERE TAKEN INTO ACCOUNT WITH MEDICAL DECISION MAKING AND RESOURCE UTILIZATION, INDEPENDENT HISTORIAN/HISTORIANS WERE USED TO OBTAIN COMPLETE MEDICAL HISTORY. I INDEPENDENTLY INTERPRETED THE TEST THAT WERE PERFORMED, RESULTS WERE REVIEWED BY ME AND CONSIDERED FINDINGS ON RADIOLOGY IF ORDERED. MEDICAL MANAGEMENT AND EXAMINATION INTERPRETATION DISCUSSIONS WERE HAD BY ME WITH OTHER QUALIFIED HEALTHCARE PROFESSIONALS INDICATED FOR THE PATIENT'S CARE. DX & DISP Disposition: Discharge Departure Impression: Primary Impression: BPPV (benign paroxysmal positional vertigo) Additional Impressions: Serum ammonia increased, Hypocalcemia, Hyperglycemia Condition: Stable Scripts Meclizine HCl (Meclizine HCl) 25 Mg Tablet 25 MG PO TID for vertigo, #30 TAB 0 Refills Prov: COMFORT HOANG 01/09/25 Additional Instructions: FOLLOW-UP WITH PRIMARY CARE PROVIDER IN 1 TO 2 DAYS. TAKE MEDICATIONS DIRECTED HERE IN THE EMERGENCY ROOM. OKAY TO CONTINUE HOME MEDICATIONS UNLESS OTHERWISE DISCUSSED DURING YOUR VISIT IN THE EMERGENCY ROOM TODAY. RETURN TO YOUR NEAREST EMERGENCY ROOM IF SYMPTOMS WORSEN OR IF THERE IS NO IMPROVEMENT. CALL 911 IF YOU NEED IMMEDIATE ASSISTANCE. TAKE TYLENOL OR MOTRIN [id number] NEEDED AND IF NO CONTRAINDICATIONS ARE PRESENT. INCREASE ORAL HYDRATION. A WOUND CULTURE OR URINE CULTURE WAS ORDERED HERE IN THE EMERGENCY ROOM DEPARTMENT PLEASE FOLLOW-UP WITH PRIMARY CARE PROVIDER AND ADVISE THEM TO GET REPEAT PORTS FROM OUR FACILITY. IF YOU HAD ANY ESTEFANÍA WRAP/SPLINTS TH AT WERE APPLIED HERE, PLEASE DO NOT REMOVE THEM UNTIL YOU SEE YOUR PRIMARY CARE OR SPECIALTY. TAKE MECLIZINE EVERY 8 HOURS FOR THE NEXT ONE DAY. FOLLOW UP WITH THE YOUR PRIMARY CARE DOCTOR NEXT ONE TWO DAYS FOR MANAGEMENT. Referrals: NELL POTTER MD (PCP) Time of Disposition: 15:04 I have reviewed the case, and I agree with, Diagnosis and Plan COMFORT HOANG Jan 09, 2025 11:19
--- NOTE | 2025-01-09 11:22 | EKG ---
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
[2025-01-09 11:42] LABS: IMMATURE GRANULOCYTE ABSOLUTE 0.01 K/uL (0-1); NUCLEATED RED BLOOD CELLS 0.0 % (0.0-0.19); PLATELET COUNT (AUTO) 128 K/uL (130-400); RED BLOOD CELL COUNT(AUTO) 4.71 MIL/uL (4.50-6.20); RED CELL DISTRIBUTION WIDTH 17.3 % (11.0-15.5); WHITE BLOOD COUNT (AUTO) 3.9 K/uL (4.8-10.8)
[2025-01-09 11:51] LABS: CREATININE 0.8 mg/dL (0.5-1.3); GLOMERULAR FILTR. RATE CALC 93.0 mL/min (>90); GLUCOSE,RANDOM 123.0 mg/dL (70-105); SODIUM SERUM 136.0 mmol/L (136-145); UREA NITROGEN, BLOOD 17.0 mg/dL (7-18)
[2025-01-09 11:55] LABS: ASPARTATE AMINOTRANSFERASE 36.0 U/L (10-37); TOTAL PROTEIN, SERUM 7.0 g/dL (6.0-8.3)
[2025-01-09 14:33] LABS: APPEARANCE,URINE CLEAR (CLEAR); GLUCOSE, URINE (UA) NEGATIVE (NEGATIVE); LEUKOCYTE ESTERASE ,URINE NEGATIVE Leu/uL (NEGATIVE); NITRATE,URINE NEGATIVE (NEGATIVE); OCCULT BLOOD,URINE NEGATIVE (NEGATIVE)
[2025-01-09 14:35] LABS: ADD UA MICROSCOPIC NO
[2025-01-09 14:36] VITALS: BP 113/53; PULSE 84; RESP 18; O2SAT 99
[2025-01-09] MEDS ORDERED: MECL-302 PO (15:05)
== END 2025-01-09 15:34 | disposition home or self-care (01) ==
LOC: EDH 11:11
DX: E72.20 Disorder of urea cycle metabolism, unspecified (principal); E83.51 Hypocalcemia; H81.10 Benign paroxysmal vertigo, unspecified ear; Z79.899 Other long term (current) drug therapy; Z98.890 Other specified postprocedural states
CPT/HCPCS: 36415; 80053; 81003; 82140; 83735; 84484; 85025; 93005; 99284

== ENCOUNTER → 2025-01-30 | Outpatient (CLI) | payer OTHER, MEDICARE ==
--- NOTE | 2025-01-30 08:30 | NUR ---
U/S GD PARACENTESIS NOT DONE U/S PERFORMED BY Kwame CARO RDMS. IMAGES REVIEWED BY DR WINTERS PER DR WINTERS NOT ENOUGH FLUID TO SAFELY PERFORM PROCEDURE. PT INFORMED AND DISCHARGE VIA AMBULATORY.
[2025-01-30 08:49] LABS: IMMATURE GRANULOCYTE ABSOLUTE 0.01 K/uL (0-1); NUCLEATED RED BLOOD CELLS 0.0 % (0.0-0.19); PLATELET COUNT (AUTO) 79 K/uL (130-400); RED BLOOD CELL COUNT(AUTO) 4.22 MIL/uL (4.50-6.20); RED CELL DISTRIBUTION WIDTH 17.0 % (11.0-15.5); WHITE BLOOD COUNT (AUTO) 3.0 K/uL (4.8-10.8)
[2025-01-30 08:58] LABS: INR 1.43 (0.85-1.15)
[2025-01-30 08:59] LABS: ASPARTATE AMINOTRANSFERASE 36.0 U/L (10-37); CREATININE 0.8 mg/dL (0.5-1.3); GLOMERULAR FILTR. RATE CALC 93.0 mL/min (>90); GLUCOSE,RANDOM 108.0 mg/dL (70-105); SODIUM SERUM 140.0 mmol/L (136-145); TOTAL PROTEIN, SERUM 6.5 g/dL (6.0-8.3); UREA NITROGEN, BLOOD 12.0 mg/dL (7-18)
[2025-01-30 09:38] LABS: BASOPHILS % (MANUAL) 1 % (0-2); EOSINOPHILS % (MANUAL) 2 % (1-6); LYMPHOCYTES % (MANUAL) 21 % (22-44); MAN.DIFF COMMENT-IMPRESSION MANUAL DIFFERENTIAL; MONOCYTES % (MANUAL) 5 % (2-9); REACTIVE LYMPHOCYTES 4 % (0-0); SEGMENTED NEUTROPHILS % 67 % (40-70)
[2025-01-30 09:39] LABS: PLATELET MORPHOLOGY COMMENT DECREASED; WBC MORPHOLOGY VACUOLATION 1+
--- NOTE | 2025-01-30 15:00 | HMCIMG ---
US ABD LIMITED/ABD WALL HISTORY: ASCITES TECHNIQUE: US ABD LIMITED/ABD WALL. FINDINGS / IMPRESSION: Ultrasound evaluation of the abdomen was performed for ascites. Consent the all 4 quadrant demonstrate no ascites identified. Therefore paracentesis was not performed..
== END | disposition home or self-care (01) ==
LOC: RAH 07:59
PROVIDERS: ATTEND Internal Medicine Gastroenterology
DX: K74.60 Unspecified cirrhosis of liver (principal); R18.8 Other ascites
CPT/HCPCS: 36415; 76705; 80053; 85025; 85610; 85730